=== PATIENT | female | born 1995 | race African-American/Black ===

== ENCOUNTER 2024-05-09 19:07 | Emergency (ER) | payer SELFPAY ==
[2024-05-09 19:08] VITALS: BP 115/67
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
[2024-05-09] MEDS: MOTRIN 800 MG PO (19:52)
== END 2024-05-09 20:12 | disposition home or self-care (01) ==
LOC: EMR 19:07
PROVIDERS: EMERGENCY PHYSICIAN Emergency Medicine; FAMILY PHYSICIAN Family Medicine
DX: S93.401A Sprain of unspecified ligament of right ankle, initial encounter (principal); X58.XXXA Exposure to other specified factors, initial encounter
CPT/HCPCS: 99283; 73610